=== PATIENT | female | born 2005 | race African-American/Black ===

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

== ENCOUNTER 2024-02-26 13:17 | Emergency (ER) | payer MEDICAID, SELFPAY ==
[2024-02-26 13:44] VITALS: BP 109/55; PULSE 91; RESP 16; TEMP 36.6; O2SAT 100; BMI 39.1
--- NOTE | 2024-02-26 13:44 | ED_ITS ---
HPI - General Adult General Chief complaint: Upper Respiratory Symptoms Stated complaint: ? Strep Throat Time Seen by Provider: 02/26/24 16:00 Source: patient Mode of arrival: ambulatory Limitations: no limitations History of Present Illness HPI narrative: Patient is a 18 year old assigned female at with no reported medical history presenting to the emergency department today with a sore throat. Patient states that since last night she has had a sore throat and pain with swallowing. Patient denies any dizziness, lightheadedness, abdominal pain, nausea, vomiting, fever, chills, blurry vision, double vision, loss of vision, chest pain, difficulty breathing, shortness of breath, back pain, night sweats, pain with urination, increased urinary frequency, increased urinary urgency, blood in her urine or stool, syncope or a near syncopal episode, recent trauma or falls, bowel incontinence, bladder incontinence, bowel retention, bladder retention, or any other complaints at this time. Onset (ago): day(s) Severity: mild Severity scale (1-10): 3 Relieving factors: none Exacerbating factors: none Associated symptoms: denies other symptoms Treatments prior to arrival: none Related Data Previous Rx's ?Medication ?Instructions ?Recorded amoxicillin 500 mg capsule 500 mg PO BID 10 days #20 caps 07/08/23 ibuprofen 800 mg tablet 800 mg PO Q8H PRN fever or pain 07/08/23 #30 tabs ibuprofen 600 mg tablet 600 mg PO Q6H PRN pain #30 tabs 11/06/23 ondansetron 4 mg disintegrating 4 mg PO Q8H PRN nausea and 11/06/23 tablet vomiting #20 tabs penicillin V potassium 500 mg 500 mg PO BID 10 days #20 tabs 02/26/24 tablet Allergies Allergy/AdvReac Type Severity Reaction Status Date / Time No Known Allergies Allergy Verified 02/26/24 13:45 Review of Systems Constitutional: Constitutional: Reports no additional constitutional comp laints, Denies chills, Denies fever(s) and Denies night sweats Eyes: Eyes: Reports no additional eye complaints, Denies blurry vision, Denies change in vision, Denies diplopia, Denies eye discharge, Denies loss of vision and Denies eye pain ENT: Denies dizziness Comments: sore throat Cardiovascular: Cardiovascular: Reports no additional cardiovascular complaints, Denies chest pain, Denies lightheadedness, Denies Loss of Consciousness and Denies dyspnea Respiratory: Respiratory: Reports no additional respiratory complaints and Denies dyspnea Gastrointestinal: Gastrointestinal: Reports no additional gastrointestinal complaints, Denies abdominal pain, Denies melena, Denies hematochezia, Denies change in bowel habits and Denies change in stool character Genitourinary: Genitourinary: Denies hematuria, Denies urinary frequency, Denies dysuria, Denies urinary incontinence, Denies urinary hesitancy and Denies urinary urgency Musculoskeletal: Musculoskeletal: Reports no additional musculoskeletal complaints, Denies numbness and Denies tingling Neurologic: Denies dizziness, Denies loss of vision, Denies numbness and Denies tingling Psychiatric: Psychiatric: Reports no additional psychiatric complaints Endocrine: Endocrine: Reports no additional endocrine complaints Hematologic/Lymphatic: Hematologic/Lymphatic: Reports no additional hematologic/lymphatic complaints Allergic/Immunologic: Allergic/Immunologic: Reports no additional allergic/immunologic complaints PMFSH Past Medical History Attestation statement: The following information was validated with the patient. 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 Physical Exam ED Vital Signs: Vital Signs - 24 hr 02/26/24 13:44 02/26/24 16:37 Temperature 97.9 F 97.9 F Pulse Rate 91 91 Respiratory Rate 16 16 Blood Pressure 109/55 L 109/55 L Pulse Oximetry 100 100 Oxygen Delivery Method Room Air Room Air BMI result Body Mass Index 39.1 Const General: cooperative, no acute distress, alert and awake Nutritional Appearance: well nourished Orientation/consciousness: patient oriented x3 Limitations: no limitations HENMT Head: Yes normal to inspection and Yes atraumatic Ears: hearing grossly normal bilaterally and external ears normal General nose exam: Normal external nose present, no nasal discharge noted and no epistaxis Face and sinus: Yes normal facial exam, No abrasion and No laceration Mouth: Normal oral and palatal mucosa present, no drooling and no muffled voice Throat: Yes abnormal tonsil (bilateral erythema and exudates) Eyes General: appearance normal, both eyes and all related structures Periorbital: periorbital findings normal Eyelids: Yes eyelids normal Conjunctivae: conjunctivae normal Pupils: Equal, round and reactive pupils present EOM: EOMs intact bilaterally Neck Neck: Yes normal visual inspection, Yes full ROM and Yes no lymphadenopathy Chest Chest palpation & inspection: normal inspection of the chest Resp Effort & Inspection: normal respiratory effort and able to speak in complete sentences GI Inspection: Yes normal to inspection Neuro General: patient oriented x3 and moves all extremities Cranial nerves: Yes Equal, round and reactive pupils present Cognition (Neuro): normal cognition Motor exam (neuro): 5/5 motor strength present throughout Sensory Exam: Normal double simultaneous stimulation for sensation Coordination: [id number] test normal Extrem General: Yes normal to inspection, Yes full ROM and Yes capillary refill normal Psych Appearance: grossly normal Mental Status: mental status grossly normal Affect: normal affect Attitude: cooperative Thought process: Normal thought process present Thought content: Normal thought content present Insight: Good insight present (Psych) Course Course Course Narrative: This is a Rapid Medical Examination (RME) performed by Devin Nguyen PA-C in triage. Full HPI, ROS, assessment and treatment plan per primary provider in the Main ED. 18 yo female here for eval of sore throat beginning last night. had strep 2 mo ago, treated with abx. feels similar. Able to tolerate p.o. intake at home. No difficulty swallowing. no otc pain meds at home. Denies fever, myalgias, cough, N/V. no sick contacts. afebrile in triage. well appearing. Posterior oropharynx erythematous with bilateral tonsillar exudates. No peritonsillar masses. Uvula midline. Controlling secretions and speaking complete sentences. Plan: viral and strep swabs ordered Medications Administered Discontinued Medications Generic Name Dose Route Start Last Admin Trade Name Freq PRN Reason Stop Dose Admin Ibuprofen 800 mg 02/26/24 13:46 02/26/24 13:49 Ibuprofen 800 Mg Tablet PO 02/26/24 13:47 800 mg ONCE ONE Administration Medical Decision Making Medical Decision Making MDM Narrative: Patient is a 18 year old assigned female at with no reported medical history presenting to the emergency department today with a sore throat and pain with swallowing. Patient's physical exam showed bilateral tonsilar erythema and exudates. Patient's strep test was positive. I explained my physical exam findings as well as all test results to the patient. I answered all questions as ked by the patient. I stressed the importance of the patient taking her medication as prescribed. I stressed the importance of the patient following up with her primary care provider. I stressed the importance of the patient returning to the emergency department immediately if her symptoms were to worsen or if she were to develop any dizziness, shortness of breath, difficulty breathing, chest pain, blurry vision, loss of vision, nausea, vomiting, abdominal pain, fever, chills, back pain, or any other complaints. Patient verbalized agreement and understanding with this treatment plan and discharge. Differential Diagnosis Differential Diagnoses: The differential diagnosis associated with the presentation includes Strep pharyngitis Pharyngitis Tonsilitis Admission/Observation Consideration of admission/observation: Escalation of care including admission/observation considered Patient would have been admitted to the hospital had her work up had any findings where hospital admission was appropriate and her clinical presentation warranted hospital admission. Lab Data [facility] Lab Attestation statement: I reviewed the patient's lab results. My interpretation of these results are in the [facility] Rationale portion of this note. Labs: Lab Results 02/26/24 Range/Units 13:52 Influenza Type A (PCR) NEGATIVE (Negative) Influenza Type B (PCR) NEGATIVE (Negative) RSV RNA Qual (PCR) NEGATIVE (Negative) SARS-CoV-2 RNA (RT-PCR) NEGATIVE (Negative) S. pyogenes GrpA ADELA Positive A (Negative) Prescription Management I considered prescription management with: Antibiotic (patient prescribed an antibiotic for strep pharyngitis) Discharge Plan Discharge Clinical Impression: Acute streptococcal pharyngitis Patient Disposition: Home, Self-Care Instructions: Strep Throat (DC) Additional Instructions: Follow up with your primary care provider. Return to the emergency department immediately if your symptoms worsen or if you develop any dizziness, shortness of breath, difficulty breathing, chest pain, blurry vision, loss of vision, nausea, vomiting, abdominal pain, fever, chills, back pain, or any other complaints. Prescriptions: New penicillin V potassium 500 mg tablet 500 mg PO BID 10 Days Qty: 20 0RF No Action amoxicillin 500 mg capsule 500 mg PO BID 10 Days Qty: 20 0RF ibuprofen 800 mg tablet 800 mg PO Q8H PRN (Reason: fever or pain) Qty: 30 0RF ibuprofen 600 mg tablet 600 mg PO Q6H PRN (Reason: pain) Qty: 30 0RF ondansetron 4 mg tablet,disintegrating 4 mg PO Q8H PRN (Reason: nausea and vomiting) Qty: 20 0RF Referrals: Carie Hale DO [Primary Care Provider] - Interventions: ED Discharge Assessment Last Done: 02/26/24 16:37 Discharge Date/Time: 02/26/24 16:38 Print Language: Latvian
[2024-02-26] MEDS: Ibuprofen 800 MG TABLET PO (13:49)
[2024-02-26 14:06] LABS: IDNOW Serial# 08D9AD1C; Strep A Nucleic Acid Positive (Negative)
[2024-02-26 14:38] LABS: Influenza A PCR NEGATIVE (Negative); Influenza B PCR NEGATIVE (Negative); Resp Syncy Virus RNA Qual PCR NEGATIVE (Negative); SARS COV2 PCR INHOUSE NEGATIVE (Negative)
[2024-02-26 16:37] VITALS: BP 109/55; PULSE 91; RESP 16; TEMP 36.6; O2SAT 100
== END 2024-02-26 16:38 | disposition home or self-care (01) ==
PROVIDERS: Physician Assistant Medical; Emergency Provider Emergency Medicine; PCP Pediatrics
DX: J02.0 Streptococcal pharyngitis (principal); Z11.52 Encounter for screening for COVID-19; Z20.822 Contact with and (suspected) exposure to COVID-19
CPT/HCPCS: 0241U; 87651; 99283; 99284

== ENCOUNTER 2024-08-25 12:05 | Outpatient (REF) | payer MEDICAID, SELFPAY ==
[2024-08-25 13:24] LABS: MANUAL DIFF FLAG NO
[2024-08-25 13:38] LABS: Basophils Absolute Auto 0.1 X10*3/uL (0.0-0.2); Basophils Percent Auto 0.6 % (0-2); Eosinophils Absolute Auto 0.2 X10*3/uL (0.0-0.4); Eosinophils Percent Auto 1.8 % (0-4); Hematocrit 36.1 % (37.0-47.0); Hemoglobin 12.5 g/dl (12.0-16.0); Imm Gran Abs Auto 0.06 X10*3/uL (0.00-0.03); Imm Gran Pct Auto 0.7 % (0.0-0.4); Lymphocytes Absolute Auto 1.9 X10*3/uL (1.2-4.9); Lymphocytes Percent Auto 23.1 % (20-40); Mean Corpuscular HGB Conc 34.6 g/dl (31.0-35.0); Mean Corpuscular Hemoglobin 29.5 pg (27.0-33.0); Mean Corpuscular Volume 85.1 fL (80.0-98.0); Mean Platelet Volume 10.8 fL (9.4-12.3); Monocytes Absolute Auto 0.6 X10*3/uL (0.1-1.2); Monocytes Percent Auto 7.7 % (2-11); Neutrophils Absolute Auto 5.4 x10*3/uL (2.0-8.3); Neutrophils Percent Auto 66.1 % (45-73); Platelet Count 303 X10*3/uL (160-400); Red Blood Count 4.24 X10*6/uL (4.20-5.50); White Blood Count 8.1 X10*3/uL (4.8-10.8)
[2024-08-25 13:56] LABS: Estimated Average Glucose 91 mg/dL; Hemoglobin A1C 91.2492 umol/L; Hemoglobin A1c % 4.8 % (<6.0); Total Hemoglobin (HGBA1C) 3164.1564 umol/L
[2024-08-25 14:04] LABS: Alanine Aminotransferase 30 U/L (0-31); Albumin Level 4.4 g/dL (3.5-5.0); Alkaline Phosphatase 83 U/L (39-117); Anion Gap 12 (12-20); Aspartate Amino Transferase 25 U/L (5-31); Bilirubin Total 0.4 mg/dL (0.0-1.0); Blood Urea Nitrogen 14 mg/dL (9-16); Carbon Dioxide 27 mmol/L (22-29); Chloride 104 mmol/L (96-108); Cholesterol 166 mg/dL (<200); Estimated Glomerular Filt Rate > 60; Glucose Random 90 mg/dL (60-115); HDL Cholesterol 36 mg/dL (>40); LDL Cholesterol Calculated 93 mg/dL (<100); Potassium 4.3 mmol/L (3.3-5.1); Sodium 139 mmol/L (135-145); Triglycerides 188 mg/dL (<150)
[2024-08-25 14:22] LABS: Thyroid Stimulating Hormone 1.76 uIU/mL (0.32-4.0)
[2024-08-26 08:37] LABS: ~HepC Num1 0.11 S/CO (0.00-0.79); ~Hepatitis C Antibody Nonreactive (Nonreactive)
[2024-08-26 09:24] LABS: DHEA Sulfate 249 mcg/dL (44-286); HCG Tumor Marker 7 mIU/mL
[2024-08-27 14:48] LABS: Follicle Stimulating Hormone 5.3 mIU/mL; Prolactin Undiluted 8.5 ng/mL
[2024-08-28 17:28] LABS: HIV RNA PCR Qn Copies Not Detected Copies/mL; HIV RNA PCR Qn Log Copies Not Detected Log cps/mL
[2024-08-30 15:54] LABS: Testosterone, Free 7.5 pg/mL (0.1-6.4); Testosterone, Total 40 ng/dL (2-45)
== END 2024-08-25 12:06 | disposition home or self-care (01) ==
LOC: HO.HHCL 12:05
PROVIDERS: Nurse Practitioner Family; Visit Provider Nurse Practitioner Family
DX: Z00.00 Encounter for general adult medical examination without abnormal findings (principal); N92.6 Irregular menstruation, unspecified
CPT/HCPCS: 36415; 80053; 80061; 82627; 83001; 83036; 83498; 84146; 84402; 84403; 84443; 84702; 85025; 86803; 87536; 87900

== ENCOUNTER 2024-11-24 16:59 | Outpatient (REF) | payer MEDICAID, SELFPAY ==
[2024-11-25 01:50] LABS: CT PCR NOT DETECTED (Not Detect.); NG PCR NOT DETECTED (Not Detect.)
== END 2024-11-24 17:00 | disposition home or self-care (01) ==
LOC: HO.HHCLNP 16:59
PROVIDERS: Visit Provider Nurse Practitioner Family
DX: N92.6 Irregular menstruation, unspecified (principal); E28.2 Polycystic ovarian syndrome
CPT/HCPCS: 87491; 87591

== ENCOUNTER 2025-01-30 14:40 | Emergency (ER) | payer MEDICAID, SELFPAY ==
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
[2025-01-30 14:51] VITALS: BP 119/53; PULSE 95; RESP 16; TEMP 36.7; O2SAT 98; BMI 36.0
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
[2025-01-30 16:15] VITALS: BP 119/53; PULSE 95; RESP 16; TEMP 36.7; O2SAT 98
== END 2025-01-30 16:15 | disposition home or self-care (01) ==
PROVIDERS: Emergency Provider Emergency Medicine; PCP Pediatrics
DX: S39.012A Strain of muscle, fascia and tendon of lower back, initial encounter (principal); V43.52XA Car driver injured in collision with other type car in traffic accident, initial encounter; Y93.9 Activity, unspecified; Y92.410 Unspecified street and highway as the place of occurrence of the external cause; Y99.8 Other external cause status
CPT/HCPCS: 72100; 99282; 99283

== ENCOUNTER → 2025-01-30 14:51 | Outpatient (BNV) | payer MEDICAID, SELFPAY | PROVIDERS: Emergency Provider Emergency Medicine; PCP Pediatrics; Visit Provider Radiology Diagnostic Radiology | DX: M54.50 Low back pain, unspecified (principal); V89.0XXA Person injured in unspecified motor-vehicle accident, nontraffic, initial encounter | CPT/HCPCS: 72100 ==

== ENCOUNTER 2025-02-26 11:27 | Outpatient (REF) | payer MEDICAID, SELFPAY ==
--- OUTSIDE RECORDS SUMMARY | 2025-02-26 11:57 | XMS_ITS | Encounter Summary ---
Author Organization [facility] Address [address] [place] [address] Care Team Providers Care [employer] Name Role Phone Salima Seay NELA Primary Care Provider [phone] Encounter Details Date Type Department Care Team (Latest Contact Info) Description 02/26/2025 Travel Social History Tobacco Use Types Packs/Day Years Used Date Smoking Tobacco: Never Smokeless Tobacco: Never Alcohol Use Standard Drinks/Week Comments Never 0 (1 standard drink = 0.6 oz pur e alcohol) Depression Answer Date Recorded Patient Health Questionnaire-9 Score 0 08/25/2024 Patient Health Questionnaire-9 Score 0 08/25/2024 Last PHQ-9: Questionnaire Data Not on file 1 10/25/2023 Housing Stability Answer Date Recorded What is your housing situation today? I have stephanie nicholson 08/25/[address] you li ve. Do you have problems with any of the following? None of the above 08/25/2024 Food Insecurity Answer Date Recorded Within the past 12 months, y ou worried that your food would run out before you got money to buy more: Never True 08/25/2024 Within the past 12 months,th e food you bought just didn't last and you didn't have enough money to get more: Never True 02/2024 Transportation Answer Date Recorded In the past 12 months, has l ack of transportation kept you from medical appts, meetings, work or from getting things needed for daily living? No 08/25/2024 Utilities Answer Date Recorded In the past 12 months, has t he electric, gas, oil or water company threatened to shut off services in your home? No 08/25/2024 Depression Answer Date Recorded Patient Health Questionnaire-2 Score 0 08/25/2024 Internet Access Answer Date Recorded Internet Access Q1 Yes 08/25/2024 Internet Access Q2 Not on file 08/25/2024 Comments Unknown Sex and Gender Information Value Date Recorded Sex Assigned at Female 08/20/2022 10:17 AM EDT Legal Sex Female 10:17 AM EDT Gender Identity Female 08/20/2022 10:17 AM EDT Sexual Orientation Straight 08/20/2022 10 :17 AM EDT documented as of this encounter Plan of Treatment Not on file documented as of this encounter Visit Diagnoses Not on filedocumented in this encounter Additional Health Concerns Assessment Noted Time PHQ-9 Depression Total Score: 0 08/25/20 11:11 AM EST documented as of this encounter Care Teams [employer] Relationship Specialty Start Date End Date Salima Seay NP [address] [place] [id number] PCP - General Family Medicine 06/24/24 documented as of this encounter
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
--- OUTSIDE RECORDS SUMMARY | 2025-02-26 11:57 | XMS_ITS | Encounter Summary ---
Author Organization [employer] Address [address] [facility] [address] [place] [address] Care Team Providers Care Support Clerk Name Role Phone Salima Seay NP Primary Care Provider [phone] Reason for Visit * Reason Comments Pre-visit Planning Left voicemail Encounter Details Date Type Department Care Team (Late st Contact Info) Description 02/22/2025 Patient Outreach [facility] [address] [place], [place] [phone] Salima Seay NP [address] [place], [place] [phone] Pre-visit Planning (Left voicemail) Social History Tobacco Use Types Packs/Day Years [...] AM EDT documented as of this encounter Progress Notes * Antonio Scott - 02/22/2025 2:40 PM EDT CC Antonio Beltran placed outbound call to patient to complete pre-visit planning. No answer at this time. Patient name and were not confirmed. CC left voicemail requesting return call. Direct contactinformation provided. documented in this encounter Plan of Treatment Not on file documented as of this encounter Visit Diagnoses Not on filedocumented in this encounter Additional Health Concerns Assessment Noted Time PHQ-9 Depression Total Score: 0 08/25/20 11:11 AM EST documented as of this encounter Care Teams Support Clerk Relationship Specialty Start Date End Date Salima Seay NP [address] [place] [phone] PCP - General Family Medicine 06/24/24 documented as of this encounter
--- OUTSIDE RECORDS SUMMARY | 2025-02-26 11:57 | XMS_ITS | Encounter Summary ---
Author Organization [employer] Address [address] [facility] 7[address] [place] [address] Care Team Providers Care Communications Maintainer Name Role Phone Salima Seay NP Primary Care Provider [phone] Encounter Details Date Type Department Care Team ([facility] st Contact Info) Description 02/25/2025 Telephone C [facility] [address] [place], [place] [phone] Salima Seay NP [address] [place], [place] [phone] Social History Tobacco Use Types Packs/Day Years [...] AM EDT documented as of this encounter Miscellaneous Notes * Telephone Encounter - Maria Teresa Scott [place] - 02/25/2025 2:10 PM EDT Chart Prep Labs: not applicable Images: done Referrals: not applicable Vaccines due: Covid and HPV Screenings: not applicable Overdue care gaps: Disability screen documented in this encounter Plan of Treatment Not on file documented as of this encounter Visit Diagnoses Not on filedocumented in this encounter Additional Health Concerns Assessment Noted Time PHQ-9 Depression Total Score: 0 08/25/20 24 11:11 AM EST documented as of this encounter Care Teams Communications Maintainer Relationship Specialty Start Date End Date Salima Seay NP [address] [place] [phone] PCP - General Family Medicine 06/24/24 documented as of this encounter
--- OUTSIDE RECORDS SUMMARY | 2025-02-26 11:57 | XMS_ITS | Encounter Summary ---
Author Organization [employer] Address [address] [facility] [address] [place] [address] Care Team Providers Care Diesel Technician Name Role Phone Salima Seay NP Primary Care Provider [phone] Encounter Details Date Type Department Care Team (Late st Contact Info) Description 02/26/2025 10:15 AM EDT Office Visit [facility] [address] [place], [place] [phone] Salima Seay NP [address] [place], [place] [phone] Possible exposure to STI (Primary Dx) Social History Tobacco Use Types Packs/Day Years [...] AM EDT documented as of this encounter Last Filed Vital Signs Vital Sign Reading [...] Mass Index 39.55 02/26/2025 10:41 AM EDT documented in this encounter Plan of Treatment Scheduled Orders Name Type Priority Associated Diagnoses Orde r Schedule Bacterial Vaginosis Panel Microbiology Routine Possible exposure to STI Ordered: 02/26/2025 HIV-1/2 Antigen and Antibodies, Fourth Generation, with Reflexes Lab Routine Possible exposure to STI Expected: 02/26/2025 (Approximate), Expires: 02/26/2026 Hepatitis C Antibody with Reflex to HCV, RNA, Quantitative, Real-Time PCR Lab Routine Possible exposure to STI Expected: 02/26/2025, Expires: 02/26/2026 RPR (Monitor) with Reflex to??Titer Lab Routine Possible exposure to STI Expected: 02/26/2025, Expires: 02/26/2026 Chlamydia/N. Gonorrhoeae RNA, TMA, Urogenitial Microbiology Routine Possible exposure to STI Ordered: 02/26/2025 documented as of this encounter Visit Diagnoses Diagnosis Possible exposure to STI- Primary documented in this encounter Additional Health Concerns Assessment Noted Time PHQ-9 Depression Total Score: 0 08/25/20 24 11:11 AM EST documented as of this encounter Care Teams Diesel Technician Relationship Specialty Start Date End Date Salima Seay NP [address] [place] [phone] PCP - General Family Medicine 06/24/24 documented as of this encounter
[2025-02-26 13:55] LABS: Alanine Aminotransferase 21 U/L (0-31); Albumin Level 4.8 g/dL (3.5-5.0); Alkaline Phosphatase 80 U/L (39-117); Anion Gap 12 (12-20); Aspartate Amino Transferase 27 U/L (5-31); Bilirubin Total 0.7 mg/dL (0.0-1.0); Blood Urea Nitrogen 14 mg/dL (9-16); Calcium 9.9 mg/dL (8.4-10.2); Carbon Dioxide 26 mmol/L (22-29); Chloride 103 mmol/L (96-108); Estimated Glomerular Filt Rate > 60; Glucose Random 88 mg/dL (60-115); Potassium 4.6 mmol/L (3.3-5.1); Sodium 136 mmol/L (135-145); Total Protein 8.4 g/dL (6.5-8.0)
[2025-02-27 03:59] LABS: HIV AB/AG Nonreactive (Nonreactive); HIV Num 1 0.08 S/CO (0.00-0.99); ~HepC Num1 0.09 S/CO (0.00-0.79); ~Hepatitis C Antibody Nonreactive (Nonreactive)
[2025-02-27 05:07] LABS: CT PCR NOT DETECTED (Not Detect.); NG PCR NOT DETECTED (Not Detect.)
[2025-02-27 07:33] LABS: HCG Tumor Marker <5 mIU/mL
[2025-02-27 09:42] LABS: Bacterial Vaginosis PCR NEGATIVE (Negative); Candida Group PCR NOT DETECTED (Not Detect); Candida glab krusei PCR NOT DETECTED (Not Detect); Trichomonas vaginalis PCR NOT DETECTED (Not Detect)
[2025-02-28 13:58] LABS: RPR Rapid Plasma Reagin NON-REACTIVE (NON-REACTIVE)
== END 2025-02-26 11:28 | disposition home or self-care (01) ==
LOC: HO.HHCL 11:27
PROVIDERS: Visit Provider Nurse Practitioner Family
DX: Z20.2 Contact with and (suspected) exposure to infections with a predominantly sexual mode of transmission (principal); N92.6 Irregular menstruation, unspecified; N91.2 Amenorrhea, unspecified
CPT/HCPCS: 36415; 80053; 81515; 84702; 86592; 86803; 87389; 87491; 87591

== ENCOUNTER 2025-10-04 16:40 | Outpatient (REF) | payer MEDICAID, SELFPAY ==
--- OUTSIDE RECORDS SUMMARY | 2025-10-04 15:45 | XMS_ITS | Encounter Summary ---
Author Organization [employer] Address [address] [place] [address] 7 [place] [address] Care Team Providers Care Spa Attendant Name Role Phone Salima Seay NP Primary Care Provider [phone] Reason for Referral * Consultation (Routine) - Canceled Specialty Diagnoses / Procedures Referred By Salina t Referred To Contact Dermatology Diagnoses Irregular menses Acne, unspecified acne type Salima Seay NP [address] [place] [address] Phone: tel: fax: Referral ID Status Reason Start Date Expiration Date Visits Requested Visits Authorized [id number] Canceled Specialty Services Required 10/04/2025 10/04/2026 1 1 * Consultation (Routine) - Canceled Specialty Diagnoses / Procedures Referred By Salina rodriguez Referred To Contact Breast Surgery Diagnoses Chronic midline thoracic back pain Salima Seay NP [address] [place] [address] Phone: tel: fax: Referral ID Status Reason Start Date Expiration Date Visits Requested Visits Authorized [id number] Canceled Specialty Services Required 10/04/2025 10/04/2026 1 1 * Imaging (Routine) - Authorized Specialty Diagnoses / Procedures Referred By Salina t Referred To Contact Radiology Diagnoses Irregular menses Procedures US Pelvis Transvaginal Salima Seay NP [address] [place] [address] Phone: tel: fax: [address] [address] Phone: tel: fax: Referral ID Status Reason Start Date Expiration Date V isits Requested Visits Authorized [id number] Authorized 10/04/2025 10/04/2026 1 1 * Imaging (Routine) - Authorized Specialty Diagnoses / Procedures Referred By Salina rodriguez Referred To Contact Radiology Diagnoses Irregular menses Procedures Us Pelvis complete Salima Seay NP [address] [place] [address] Phone: tel: fax: [address] [address] Phone: tel: fax: Referral ID Status Reason Start Date Expiration Date V isits Requested Visits Authorized [id number] Authorized 10/04/2025 10/04/2026 1 1 * Consultation (Routine) - Canceled Specialty Diagnoses / Procedures Referred By Salina rodriguez Referred To Contact Chiropractic Medicine Diagnoses Chronic low back pain, unspecified back pain laterality, unspecified whether sciatica present Salima Seay NP [address] [place] [address] Phone: tel: fax: Referral ID Status Reason Start Date Expiration Date Visits Requested Visits Authorized [id number] Canceled Specialty Services Required 10/04/2025 10/04/2026 1 1 Encounter Details Date Type Department Care Team (Late st Contact Info) Description 10/04/2025 3:45 PM EST Office Visit [facility] [address] [place] [address] aSlima Seay NP [address] [place] [address] Chronic low back pain, unspecified back pain laterality, unspecified whether sciatica present (Primary Dx); Irregular menses; Chronic midline thoracic back pain; Acne, unspecified acne type Social History Tobacco Use Types Packs/Day Years Used Date Smoking Tobacco: Never Smokeless Tobacco: Never Tobacco Cessation:Counseling Given: Not Answered Alcohol Use Standard Drinks/Week Comments Never 0 (1 standard drink = 0.6 oz pur e alcohol) Depression Answer Date Recorded Patient Health Questionnaire-9 Score 0 10/04/2025 Patient Health Questionnaire-9 Score 0 10/04/2025 Last PHQ-9: Questionnaire Data Not on file 1 12/05/2024 Housing Stability Answer Date Recorded What is your housing situation today? I have stephaine nicholson 10/04/[address] you li ve. Do you have problems with any of the following? None of the above 10/04/2025 Food Insecurity Answer Date Recorded Within the past 12 months, y ou worried that your food would run out before you got money to buy more: Never True 10/04/2025 Within the past 12 months,th e food you bought just didn't last and you didn't have enough money to get more: Never True Transportation Answer Date Recorded In the past 12 months, has l ack of transportation kept you from medical appts, meetings, work or from getting things needed for daily living? No 10/04/2025 Utilities Answer Date Recorded In the past 12 months, has t he electric, gas, oil or water company threatened to shut off services in your home? No 10/04/2025 Depression Answer Date Recorded Patient Health Questionnaire-2 Score 0 10/04/2025 Internet Access Answer Date Recorded Internet Access Q1 Yes 10/04/2025 Internet Access Q2 Not on file 10/04/2025 Comments Unknown Sex and Gender Information Value Date Recorded Sex Assigned at Female 08/20/2022 10:17 AM EDT Legal Sex Female 10:17 AM EDT Gender Identity Female 08/20/2022 10:17 AM EDT Sexual Orientation Straight 08/20/2022 10 :17 AM EDT documented as of this encounter Last Filed Vital Signs Vital Sign Reading Time Taken Comments Blood Pressure 130/64 10/04/2025 4:09 PM EST Pulse 87 10/04/2025 4:09 PM EST Temperature 36.2 C (97.1 F) 10/04/2025 4:09 PM EST Respiratory Rate 20 10/04/2025 4:09 PM EST Oxygen Saturation 99% 10/04/2025 4:09 PM EST Inhaled Oxygen Concentration - - Weight 108 kg (239 lb) 10/04/2025 4:09 PM EST Height 162.6 cm (5' 4 ) 10/04/2025 4:09 PM EST Body Mass Index 41.02 10/04/2025 4:09 PM EST documented in this encounter Functional Status * Over the past 2 weeks, how often have you been bothered by any of the following problems? Question Answer Date of Assessment Author Patient Health Questionnaire -2 Score 0 10/04/2025 4:12 PM EST Judy Becker MA * Little interest or pleasure in doing things Answer Date of Assessment Author Not at all 10/04/2025 4:12 PM EST Paresh Becker MA * Feeling down, depressed, or hopeless Answer Date of Assessment Author Not at all 10/04/2025 4:12 PM EST Paresh Becker MA * Trouble falling or staying asleep, or sleeping too much Answer Date of Assessment Author Not at all 10/04/2025 4:12 PM EST Paresh Becker MA * Feeling tired or having little energy Answer Date of Assessment Author Not at all 10/04/2025 4:12 PM EST Paresh Becker MA * Poor appetite or overeating Answer Date of Assessment Author Not at all 10/04/2025 4:12 PM EST Paresh Becker MA * Feeling bad about yourself - or that you are a failure or have let yourself or your family down Answer Date of Assessment Author Not at all 10/04/2025 4:12 PM EST Paresh Becker MA * Trouble concentrating on things, such as reading the newspaper or watching television Answer Date of Assessment Author Not at all 10/04/2025 4:12 PM EST Paresh Becker MA * Moving or speaking so slowly that other people could have noticed? Or the opposite - being so fidgety or restless that you have been moving around a lot more than usual. Answer Date of Assessment Author Not at all 10/04/2025 4:12 PM Paresh Graf MA * Thoughts that you would be better off or hurting yourself in some way Answer Date of Assessment Author Not at all 10/04/2025 4:12 PM Paresh Graf MA * Patient Health Questionnaire-9 Score Answer Date of Assessment Author 0 10/04/2025 4:12 PM Paresh Graf MA * Over the last 2 weeks, how often have you been bothered by any of the following problems? Question Answer Date of Assessment Author Feeling nervous, anxious, or on edge 0 10/04/2025 4:12 PM Judy Graf MA Not being able to stop or co ntrol worrying 0 10/04/2025 4:12 PM Judy Graf MA Worrying too much about diff erent things 2 10/04/2025 4:12 PM Judy Graf MA Trouble relaxing 2 10/04/2025 4:12 PM Judy Fink MA Being so restless that it is hard to sit still 3 10/04/2025 4:12 PM Judy Graf MA Becoming easily annoyed or irritable 0 10/04/2025 4:12 PM Judy Graf MA Feeling afraid as if somethi ng awful might happen 0 10/04/2025 4:12 PM Judy Graf MA ROMELIA-7 Total Score 7 10/04/2025 4:12 PM Judy Graf MA documented as of this encounter Progress Notes * Salima Seay NP - 10/04/2025 3:45 PM EST Libertad Kiran, 20-year-old female - Chronic low back pain and upper back pain, seeking referral to chiropractor, reports benefit fromchiropractic care - History of PCOS, previously on metformin, discontinued due to perceived lack of efficacy - Irregular menstrual cycles; last month missed period, then returned to monthly cycles, currently experiencing continuous vaginal bleeding for two and a half weeks, not heavy - Reports vaginal bleeding triggered by sexual intercourse - Denies heavy menstrual bleeding - Reports unprotected sexual activity - Interested in breast reduction due to back pain - Interested in dermatology referral for possible Accutane for acne Problem List[1] Medical History[2] Allergies[3] Review of Systems Genitourinary: Negative for difficulty urinating. Skin: Positive for rash. BP 130/64 (BP Location: Right arm, Patient Position: Sitting, BP Cuff Size: Adult) Pulse 87 Temp 97.1 ??F (36.2 ??C) (Temporal) Resp 20 Ht 5' 4 (1.626 m) Wt 239 lb (108 kg) LMP 09/30/2025 (Exact Date) SpO2 99% BMI 41.02 kg/m?? Physical Exam Vitals reviewed. Constitutional: Appearance: She is obese. HENT: Head: Normocephalic and atraumatic. Nose: Nose normal. Eyes: Conjunctiva/sclera: Conjunctivae normal. Cardiovascular: Rate and Rhythm: Normal rate and regular rhythm. Pulmonary: Effort: Pulmonary effort is normal. Breath sounds: Normal breath sounds. Musculoskeletal: Cervical back: Normal range of motion and neck supple. Neurological: General: No focal deficit present. Mental Status: She is alert. Results: No visits with results within 28 Day(s) from this visit. Latest known visit with results is: Orders Only on 02/26/2025 Component Date Value Ref Range Status Sodium 02/26/2025 136 135 - 145 mmol/L Final Potassium 02/26/2025 4.6 3.3 - 5.1 mmol/L Final Chloride 02/26/2025 103 96 - 108 mmol/L Final Carbon Dioxide 02/26/2025 26 22 - 29 mmol/L Final Anion Gap 02/26/2025 12 12 - 20 Final Urea Nitrogen (BUN) 02/26/2025 14 9 - 16 mg/dL Final Creatinine, Serum 02/26/2025 1.11 0.5 - 1.4 mg/dL Final Estimated Glomerular Filt Rate 02/26/2025 >60 Final Chronic Kidney Disease: Estimated GFR < 60 mL/min/[id number] Kidney Disease: Estimated GFR < 15 mL/min/1.73m2 Glucose 02/26/2025 88 60 - 115 mg/dL Final Calcium 02/26/2025 9.9 8.4 - 10.2 mg/dL Final Bilirubin, Total 02/26/2025 0.7 0.0 - 1.0 mg/dL Final Aspartate Amino Transferase 02/26/2025 27 5 - 31 U/L Final Alanine Aminotransferase 02/26/2025 21 0 - 31 U/L Final Total Protein 02/26/2025 8.4 (H) 6.5 - 8.0 g/dL Final Albumin Level 02/26/2025 4.8 3.5 - 5.0 g/dL Final Alkaline Phosphatase 02/26/2025 80 39 - 117 U/L Final Assessment & Plan Chronic low back pain, unspecified back pain laterality, unspecified whether sciatica present Orders: Referral to Chiropractic; Future Irregular menses Orders: Chlamydia/N. Gonorrhoeae RNA, TMA, Vaginal TSH W/Reflex to FT4; Future Us Pelvis complete; Future US Pelvis Transvaginal; Future Referral to Dermatology; Future Chronic midline thoracic back pain Orders: Referral to Breast Surgery; Future Acne, unspecified acne type Orders: Referral to Dermatology; Future Assessment & Plan Chronic low back pain, unspecified back pain laterality, unspecified whether sciatica present: - Chronic low back pain managed with childbirth and infant care teacher. - Referral to [facility] for ongoing management. Chronic midline thoracic back pain: - Chronic midline thoracic back pain associated with upper back pain, possibly related to breast size. - Referral to breast surgery for evaluation of breast reduction. Discussed that insurance may require documentation of back pain, weight loss, or completion of and prior to surgery. Recommendation to consider physical therapy and weight loss as part of management. Referral to physical therapy discussed as a possible insurance requirement. Irregular menses: - Irregular menses attributed to polycystic ovary syndrome (PCOS). Current episode of prolonged bleeding likely due to hormonal imbalance associated with PCOS. No evidence of androgen excess or otherconcerning features. No acute life- threatening etiology suspected. - Ordered pelvic ultrasound (including transvaginal probe if needed) to assess endometrial thickness and rule out structural abnormalities. Ordered vaginal swab to rule out sexually transmitted infections. Ordered thyroid function testing (TSH). Discussed option of hormonal therapy ( control) to regulate or suppress menses, but patient declined at this time. Discussed risks of endometrial hyperplasia and cancer with prolonged anovulation if menses absent for more than 3-4 months. Recommendation to monitor for symptoms of anemia. Discussed that metformin and other medications are available if desired in the future. Acne, unspecified acne type: - Acne present. Accutane (isotretinoin) not prescribed in primary care due to potential toxicity; referral to dermatology for further management. - Referral to dermatology for evaluation and management of acne. Discussed that Accutane may require contraception due to teratogenicity. Offered prescription for topical retinoid as an alternative, with counseling regarding precautions. Appointments - Referral to [facility] for low back pain - Referral to breast surgery clinic for evaluation of breast reduction - Referral to dermatology for assessment of acne and Accutane candidacy Current Medications[4] Based on our discussion, I have outlined the following instructions for you: - Continue with childbirth and infant care teacher for your low back pain. - Consider starting physical therapy and working on weight loss to help with your back pain, as this may also be needed for insurance. - Get the pelvic ultrasound as ordered to check your uterus lining and rule out any problems. - Get the vaginal swab test as ordered to check for sexually transmitted infections. - Get your thyroid blood test as ordered. - Watch for signs of anemia, such as feeling very tired, pale, or weak. - If you choose, you can use the topical retinoid cream for acne, but make sure to follow pregnancyprecautions. Next appointment(s): - Referral to [facility] for low back pain - Referral to breast surgery clinic for evaluation of breast reduction - Referral to dermatology for assessment of acne and Accutane candidacy This note was drafted using Ambient (AI) technology. The patient/patient's guardian has been informed and has consented to the use of this technology: Yes [1] Patient Active Problem List Diagnosis Dietary counseling Exercise counseling Irregular menses Exposure to communicable disease Amenorrhea Acne Acute streptococcal pharyngitis Chondromalacia, left knee Myopia Obesity Patella-femoral syndrome PCOS (polycystic ovarian syndrome) Chronic low back pain Chronic midline thoracic back pain [2] No past medical history on file. [3] No Known Allergies [4] Current Outpatient Medications: metFORMIN (Glucophage) 500 MG tablet, TAKE 1 TABLET BY MOUTH WITH BREAKFAST AND EVENING MEAL, Disp:180 tablet, Rfl: 1 documented in this encounter Miscellaneous Notes * Assessment & Plan Note - Salima Seay NP - 10/04/2025 3:45 PM ESTAssociated Problem(s): Chronic low back pain Orders: Referral to Chiropractic; Future * Assessment & Plan Note - Salima Seay NP - 10/04/2025 3:45 PM ESTAssociated Problem(s): Irregular menses Orders: Chlamydia/N. Gonorrhoeae RNA, TMA, Vaginal TSH W/Reflex to FT4; Future Us Pelvis complete; Future US Pelvis Transvaginal; Future Referral to Dermatology; Future * Assessment & Plan Note - Salima Seay NP - 10/04/2025 3:45 PM ESTAssociated Problem(s): Chronic midline thoracic back pain Orders: Referral to Breast Surgery; Future * Assessment & Plan Note - Salima Seay NP - 10/04/2025 3:45 PM ESTAssociated Problem(s): Acne Orders: Referral to Dermatology; Future documented in this encounter Plan of Treatment Scheduled Orders Name Type Priority Associated Diagnoses Orde r Schedule TSH W/Reflex to FT4 Lab Routine Irregular menses Expected: 10/04/2025 (Approximate), Expires: 10/04/2026 Us Pelvis complete Imaging Routine Irregular menses Expected: 10/04/2025, Expires: 10/04/2026 US Pelvis Transvaginal Imaging Routine Irregular menses Expected: 10/04/2025, Expires: 10/04/2026 Scheduled Referrals Name Type Priority Associated Diagnoses Orde r Schedule Referral to Chiropractic Outpatient Referral Routine Chronic low back pain, unspecified back pain laterality, unspecified whether sciatica present Expected: 10/04/2025 (Approximate), Expires: 10/04/2026 Referral to Breast Surgery Outpatient Referral Routine Chronic midline thoracic back pain Expected: 10/04/2025 (Approximate), Expires: 10/04/2026 Referral to Dermatology Outpatient Referral Routine Irregular menses Acne, unspecified acne type Expected: 10/04/2025 (Approximate), Expires: 10/04/2026 documented as of this encounter Procedures Procedure Name Priority Date/Time Associated Diagnosis Comments CHLAMYDIA/N. GONORRHOEAE RNA, TMA, UROGENITAL Routine 10/04/2025 4:40 PM EST Irregular menses documented in this encounter Results * Chlamydia/N. Gonorrhoeae RNA, TMA, Vaginal (10/04/2025 4:40 PM EST) CT PCR NOT DETECTED Not Detect. [facility] Comment:A not detected test result [...] psychologicalconsequences. NG PCR NOT DETECTED Not Detect. [facility] Comment:A not detected test result [...] lead to adverse medical, social or psychologicalconsequences. Swab Vaginal structure / Unknown 10/04/2025 4:40 PM EST 10/05/2025 2:06 PM EST us Salima Seay NP LAB MICROBIOLOGY - GENERAL ORDER THEO Final Result [facility] [address] [place] [phone] documented in this encounter Visit Diagnoses Diagnosis Chronic low back pain, unspecified back pain laterality, unspecified whether sciatica present- Primary Irregular menses Irregular menstrual cycle Chronic midline thoracic back pain Acne, unspecified acne type documented in this encounter Additional Health Concerns Assessment Noted Time PHQ-9 Depression Total Score: 0 10/04/20 25 4:12 PM EST documented as of this encounter Care Teams Spa Attendant Relationship Specialty Start Date End Date Salima Seay NP [address] [place] [phone] PCP - General Family Medicine 06/24/24 documented as of this encounter
[2025-10-05 16:13] LABS: CT PCR NOT DETECTED (Not Detect.); NG PCR NOT DETECTED (Not Detect.)
--- OUTSIDE RECORDS SUMMARY | 2025-10-05 18:19 | XMS_ITS | Encounter Summary ---
Author Organization [employer] Address [address] [facility] [address] [place] [address] Care Team Providers Care Project Builder Name Role Phone Salima Seay NP Primary Care Provider [phone] Reason for Visit * Reason Onset Date Comments Insurance 10/01/[address] [address] an is inactive it states she's not eligible, I spoke to pt she said she will go to insurance enrollment before her apt to get it fixed. Encounter Details Date Type Department Care Team (Late st Contact Info) Description 10/01/2025 Telephone [facility] [address] [place], [place] [phone] Salima Seay, FIELD SPEC [address] [place], [place] [phone] Insurance (Pt [facility] plan is inactive it states she's not eligible, I spoke to pt she said she will go to insurance enrollment before her apt to get it fixed. ) Social History Tobacco Use Types Packs/Day Years [...] encounter Miscellaneous Notes * Telephone Encounter - Jacklyn Montelongo - 10/01/2025 11:15 AM EST Pt [facility] plan is inactive it states she's not eligible, I spoke to pt she said she will go to insurance enrollment before her apt to get it fixed. documented in this encounter Plan of Treatment Not on file documented as of this encounter Visit Diagnoses Not on filedocumented in this encounter Additional Health Concerns Assessment Noted Time PHQ-9 Depression Total Score: 0 08/25/20 11:11 AM EST documented as of this encounter Care Teams Project Builder Relationship Specialty Start Date End Date Salima Seay NP [address] [place] [address] PCP - General Family Medicine 06/24/24 documented as of this encounter
--- OUTSIDE RECORDS SUMMARY | 2025-10-05 18:19 | XMS_ITS | Encounter Summary ---
Author Organization [employer] Address [address] [place] [address] [address] [place] [address] Care Team Providers Care Network Architect Manager Name Role Phone Salima Seay NP Primary Care Provider [phone] Reason for Visit * Reason Onset Date Comments CHARTPREP 10/01/2025 Encounter Details Date Type Department Care Team ([facility] st Contact Info) Description 10/01/2025 Telephone [facility] [address] [place], [place] [phone] Salima Seay NP [address] [place], [place] [phone] CHARTPREP Social History Tobacco Use Types Packs/Day Years [...] encounter Miscellaneous Notes * Telephone Encounter - Aleksander French MA - 10/01/2025 3:29 PM EST Chart Prep Labs: done Images: done Referrals: not applicable Vaccines due: Covid, Flu, MCV4, and HPV Screenings: pap smear,alcohol/substance use screening,family planning Overdue care gaps: SBIRT, SDOH, PHQ-9, ROMELIA-7, and Oral health screening documented in this encounter Plan of Treatment Not on file documented as of this encounter Visit Diagnoses Not on filedocumented in this encounter Additional Health Concerns Assessment Noted Time PHQ-9 Depression Total Score: 0 08/25/20 11:11 AM EST documented as of this encounter Care Teams Network Architect Manager Relationship Specialty Start Date End Date Salima Seay NP [address] [place] [address] PCP - General Family Medicine 06/24/24 documented as of this encounter
--- OUTSIDE RECORDS SUMMARY | 2025-10-05 18:19 | XMS_ITS | Encounter Summary ---
Author Organization [employer] Address [address] [facility] [address] [place] [address] Care Team Providers Care Assembly Machine Tool Setter Name Role Phone Salima Seay NELA Primary Care Provider [phone] Encounter Details Date Type Department Care Team (Latest Contact Info) Description 10/04/2025 Travel Social History Tobacco Use Types Packs/Day [...] housing situation today? I have stephanie nicholson 10/04/[address] you [...] AM EDT documented as of this encounter Functional Status * Over the past 2 weeks, how often have you been bothered by any of the following problems? Question Answer Date of Assessment Author Patient Health Questionnaire -2 Score 0 10/04/2025 4:12 PM Judy Graf MA * Little interest or pleasure in doing things Answer Date of Assessment Author Not at all 10/04/2025 4:12 PM Paresh Graf MA * Feeling down, depressed, or hopeless Answer Date of Assessment Author Not at all 10/04/2025 4:12 PM Paresh Graf MA * Trouble falling or staying asleep, or sleeping too much Answer Date of Assessment Author Not at all 10/04/2025 4:12 PM Paresh Graf MA * Feeling tired or having little energy Answer Date of Assessment Author Not at all 10/04/2025 4:12 PM Paresh Graf MA * Poor appetite or overeating Answer Date of Assessment Author Not at all 10/04/2025 4:12 PM Paresh Graf MA * Feeling bad about yourself - or that you are a failure or have let yourself or your family down Answer Date of Assessment Author Not at all 10/04/2025 4:12 PM Paresh Graf MA * Trouble concentrating on things, such as reading the newspaper or watching television Answer Date of Assessment Author Not at all 10/04/2025 4:12 PM Paresh Graf MA * Moving or speaking so slowly [...] or on edge 0 10/04/2025 4:12 PM EST Judy Becker MA Not being able to stop or co ntrol worrying 0 10/04/2025 4:12 PM Judy Graf MA Worrying too much about diff erent things 2 10/04/2025 4:12 PM EST Judy Becker MA Trouble relaxing 2 10/04/2025 4:12 PM EST Judy Vazquez MA Being so restless that it is hard to sit still 3 10/04/2025 4:12 PM EST Judy Becker MA Becoming easily annoyed or irritable 0 10/04/2025 4:12 PM EST Judy Becker MA Feeling afraid as if somethi ng awful might happen 0 10/04/2025 4:12 PM EST Judy Becker MA ROMELIA-7 Total Score 7 10/04/2025 4:12 PM EST Judy Becker MA documented as of this encounter Plan of Treatment Not on file documented as of this encounter Visit Diagnoses Not on filedocumented in this encounter Additional Health Concerns Assessment Noted Time PHQ-9 Depression Total Score: 0 10/04/20 25 4:12 PM EST documented as of this encounter Care Teams Assembly Machine Tool Setter Relationship Specialty Start Date End Date Salima Seay NP [address] [place] [address] PCP - General Family Medicine 06/24/24 documented as of this encounter
--- OUTSIDE RECORDS SUMMARY | 2025-10-05 18:20 | XMS_ITS | Clinical Summary ---
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 Name Role Phone Salima Seay NELA Primary Care Provider [phone] Allergies No known active allergies Medications metFORMIN (Glucophage) 500 MG tablet TAKE 1 TABLET BY MOUTH WITH BREAKFAST AND EVENING MEAL 180 tablet 1 Active Active Problems Problem Noted Date Diagnosed Date Chronic low back pain 10/04/2025 Assessment & Plan (10/04/2025 4:41 PM EST): Orders: Referral to Chiropractic; Future Chronic midline thoracic back pain 10/04/2025 Assessment & Plan (10/04/2025 4:41 PM EST): Orders: Referral to Breast Surgery; Future PCOS (polycystic ovarian syndrome) 11/24/2024 Assessment & Plan (02/28/2025 2:35 PM EDT): Pleased with menses regulating, would like to be , Declines contraceptives today Requesting asymptomatic sti testing Acute streptococcal pharyngitis 11/12/2024 Chondromalacia, left knee [...] daily Irregular menses 08/25/2024 Assessment & Plan (10/04/2025 4:41 PM EST): Orders: Chlamydia/N. Gonorrhoeae RNA, TMA, Vaginal TSH W/Reflex to FT4; Future Us Pelvis complete; Future US Pelvis Transvaginal; Future Referral to Dermatology; Future Assessment & Plan (11/26/2024 3:52 PM EST): [...] Assessment & Plan (08/25/2024 12:57 PM EST): Quant gold ordered for work Works in [employer] Acne 06/30/2021 Assessment & Plan (10/04/2025 4:41 PM EST): Orders: Referral to Dermatology; Future Obesity 06/30/2021 Myopia 08/23/2016 Encounters Date Type Department Care Team Description 10/04/2025 3:45 PM EST Office Visit [facility] [address] [place] [address] Salima Seay NP Chronic low back pain, unspecified back pain laterality, unspecified whether sciatica present (Primary Dx); Irregular menses; Chronic midline thoracic back pain; Acne, unspecified acne type 10/04/2025 Travel 10/01/2025 Telephone [facility] [address] [place] [address] Salima Seay NP CH[employer] 10/01/2025 Telephone [facility] [address] [place] [address] Salima Seay NP Insurance (Pt [employer] plan is inactive it states she's not eligible, I spoke to pt she said she will go to insurance enrollment before her apt to get it fixed. ) 09/08/2025 Telephone [facility] [address] [place] [address] Salima Seay NP Referral from Last 3 Months Immunizations Immunization Administration Dates Next Due DTaP 05/25/2009,01/07/2005,2004 DTaP [...] Mass Index 41.02 10/04/2025 4:09 PM EST Plan of Treatment Health Maintenance Due Date Last Done Comments Family Planning (PISQ) 2019 Meningococcal B Vaccine (1 of 2 - Standard) 2020 HPV Vaccines (3 - 3-dose series) 09/22/2021 06/30/2021, 11/02/2019 COVID-19 Vaccine ( - season) 2025 03/29/2021, 03/08/2021 Influenza Vaccine (#1) 2025 , 11/02/2019, 11/21/2005 Pap Smear 2025 Disability Screening 02/26/2026 02/26/2025 Alcohol/Substance Use Screening 10/04/2026 10/04/2025 Chlamydia and Gonorrhea Screening 10/04/2026 10/04/2025, 07/20/2025, 07/20/2025, Additional history exists Depression Screening 10/04/2026 10/04/2025, 10/04/20 SDOH Screening 10/04/2026 10/04/2025 Tobacco Screening 10/04/2026 10/04/2025 Lipid Panel 08/25/2029 08/25/2024 DTaP/Tdap/Td Vaccines (5 - Td or Tdap) 11/02/2029 11/02/2019, 05/25/2009, 01/07/2005, Additional history exists Zoster Vaccines (1 of 2) 2054 RSV Patients and Patients Aged 60 years or older (1 - 1-dose 75+ series) 2079 Pneumococcal Vaccine: Pediatrics (0 to 5 Years) and At-Risk Patients (6 to 49) Years Aged Out 02/13/2005, 01/11/2005, 2004 No longer eligible based on patient's age to complete this topic Hepatitis B Vaccines Completed 03/13/2005, 2004, 2004, Additional history exists HIB Vaccines Completed 11/21/2005, 12/20, 2004, Additional history exists IPV Vaccines Completed 05/25/2009, 12/20, 2004, Additional history exists Hepatitis A Vaccines Completed 06/30/2021, 11/02/19 20 Meningococcal Vaccine Completed 06/30/2021, 020 HIV Screening Completed 02/26/2025 Hepatitis C Screening Completed 02/26/2025, 024 RSV under 20 months Aged Out No longe r eligible based on patient's age to complete this topic Rotavirus Vaccines Aged Out No longer eligible based on patient's age to complete this topic Procedures Procedure Name Priority Date/Time Associated Diagnosis Comments CHLAMYDIA/N. GONORRHOEAE RNA, TMA, UROGENITAL Routine 10/04/2025 4:40 PM EST Irregular menses HEPATITIS C AB W/REFL TO HCV RNA, QN, PCR Routine 02/26/2025 11:29 AM EDT Possible exposure to STI HIV 1/2 ANTIGEN/ANTIBODY, FOURTH GENERATION W/RFL Routine 02/26/2025 11:29 AM EDT Possible exposure to STI LIPID PANEL, STANDARD Routine 08/25/2024 12:10 PM EST Routine general medical examination at a health care facility from Last 3 Months or Most Recently Relevant to Health Maintenance Results * Chlamydia/N. Gonorrhoeae RNA, TMA, Vaginal (10/04/2025 4:40 PM EST) CT PCR NOT DETECTED Not Detect. [facility] Comment:A not detected test result [...] psychologicalconsequences. NG PCR NOT DETECTED Not Detect. [facility] Comment:A not detected test result [...] 4:40 PM EST 10/05/2025 2:06 PM EST Salima Seay NP LAB MICROBIOLOGY - GENERAL ORDER THEO Final Result Performing Organization Address City/[facility] Co de Phone Number [facility] [address] [place] [phone] * Hepatitis C Antibody with Reflex to HCV, RNA, Quantitative, Real-Time PCR (02/26/2025 11:29 AM EDT) Hepatitis C Antibody Nonreactive Nonreactive [facility] Comment:Antibodies to HCV no t detected; does not exclude early acuteHCV infection. Blood Venous blood specimen / Unknown 02/26/2025 11:29 AM EDT 02/26/2025 1:12 PM EDT Salima Seay NP LAB BLOOD ORDERABLES Final Resul t [facility] [address] [place] [phone] [phone] * HIV-1/2 Antigen and Antibodies, Fourth Generation, with Reflexes (02/26/2025 11:29 AM EDT) HIV AB/AG Nonreactive Nonreactive [facility] Comment:HIV-1 p24 Ag and/or HIV-1/HIV-2 Ab not detected.A test result that is nonreactive does not exclude thepossibility of exposure to or infection with HIV-1 and/orHIV-2. Nonreactive results in this assay for individualswith prior exposure to HIV-1 and/or HIV-2 may be due toantigen and antibody levels that are below the limit ofdetection of this assay.The Dynasil HIV Ag/Ab Combo assay result andsupplemental assay results should be interpreted inconjunction with the patient's clinical presentation,history and other laboratory results. If the results areinconsistent with clinical evidence, additional testing issuggested to confirm the result. Blood Venous blood specimen / Unknown 02/26/2025 11:29 AM EDT 02/26/2025 1:12 PM EDT us Salima Seay NP LAB BLOOD ORDERABLES Final Resul t [facility] [address] [place] [phone] [phone] * (ABNORMAL) Lipid Panel, Standard (08/25/2024 12:10 PM EST) Triglycerides 188(H) <150 mg/dL [facility] Comment:Desirable Triglyceri de: less than 150 mg/dLBorderline High Triglyceride 150-199 mg/dLHigh Triglyceride: 200-499 mg/dLVery High Triglyceride: greater than or equal to 5OO mg/dL Cholesterol 166 <200 mg/dL [facility] Comment:Desirable Cholestero l: less than 200 mg/dLBorderline High Cholesterol: 200-239 mg/dLHigh Cholesterol: greater than 239 mg/dL LDL Cholesterol Calculated 93 <100 mg/dL [facility] Comment:Desirable LDL: less than 100 mg/dLNear Optimal/Above Optimal LDL: 110- 129 mg/dLBorderline High LDL: 130-159 mg/dLHigh LDL: 160-189 mg/dLVery High LDL: greater than or equal to 190 mg/dL HDL Cholesterol 36(L) >40 mg/dL [facility] Comment:Desirable HDL: great er than 40 mg/dL Note: This HDL assay may give artificially low results in patients with liver disease. Blood Venous blood specimen / Unknown 08/25/2024 12:10 PM EST 08/25/2024 1:19 PM EST us Michelel Kurtz BUDGET RECORD CLERK LAB BLOOD ORDERABLES Final Resu lt [facility] [address] [place] [phone] from Last 3 Months or Most Recently Relevant to Health Maintenance [id number] Care Teams Masonry Teacher Relationship Specialty Start Date End Date Salima Seay NP [address] [place] [phone] PCP - General Family Medicine 06/24/24
== END 2025-10-04 16:41 ==
LOC: HO.HHCLNP 16:40
PROVIDERS: Visit Provider Nurse Practitioner Family
DX: Z20.2 Contact with and (suspected) exposure to infections with a predominantly sexual mode of transmission (principal); N92.6 Irregular menstruation, unspecified
CPT/HCPCS: 87491; 87591